=== PATIENT | male | born 1950 | race Asian ===

== ENCOUNTER 2016-09-30 06:37 | Inpatient (IN) | payer BC ==
[2016-09-10 10:53] VITALS: BMI 30.7
[~2016-09-30 06:37] MED LIST: CEFAZOLIN 2 GM in DEXTROSE 5%-WATER - 50 ML IVPB ONE; CELECOXIB 200 MG CAPSULE PO ONE; GABAPENTIN 300 MG CAPSULE (FP) PO ONE; PANTOPRAZOLE 40 MG TABLET (FP) PO ONE; ROPIVICAINE 0.2%/MORPH PF/KETOROLAC - 51ML DISP.SYRINGE IA ONE; TRANEXAMIC ACID 1000 MG/10 ML VIAL IVPUSH ONE; oxyCODONE HCL 10 MG SUSTAINED ACTING TABLET PO ONE
[2016-09-30] MEDS ORDERED: PANTOPRAZOLE 40 MG TABLET (FP) ONE (06:40)
[2016-09-30] MEDS ORDERED: oxyCODONE HCL 10 MG SUSTAINED ACTING TABLET ONE (06:40)
[2016-09-30] MEDS ORDERED: GABAPENTIN 300 MG CAPSULE (FP) ONE (06:41)
[2016-09-30] MEDS ORDERED: CELECOXIB 200 MG CAPSULE ONE (06:41)
[2016-09-30] MEDS ORDERED: DEXAMETHASONE SOD PHOSPHATE/PF 10 MG/ML SDV ONE (07:21)
[2016-09-30] MEDS ORDERED: ROPIVACAINE HCL 0.5% 30ML VIAL ONE (07:22)
[2016-09-30] MEDS ORDERED: BUPIVACAINE HCL/PF 2.5 MG/ML - 30 ML VIAL IJ ONE (07:22)
[2016-09-30] MEDS ORDERED: MIDAZOLAM HCL 2 MG/2 ML SINGLE DOSE VIAL ONE (07:23)
[2016-09-30] MEDS ORDERED: ceFAZolin SODIUM 1 GM VIAL ONE ×2 (07:26→08:24)
[2016-09-30] MEDS ORDERED: VANCOMYCIN 1,000 MG VIAL (RESTRICTED TO ID ONLY) ONE (07:27)
--- NOTE | 2016-09-30 07:39 | HP ---
Admitting History and Physical - Admission Chief Complaint: right knee osteoarthritis x years History of Present Illness: 66 year old male presents in regard to his right knee. Longstanding history of right knee osteoarthritis. Patient's knee osteoarthritis is limited to one compartment. Patient complains of pain, limited ROM and difficulty with ADLs. Patient has failed conservative treatment including PO medication, activity modification, injections and exercise program. Patient would like to proceed with a right knee unicompartmental knee arthroplasty (MAKOplasty). History Source: Patient - Past Medical History Musculoskeletal: Yes: Osteoarthritis - Past Surgical History Additional Past Surgical History: See written H&P - Smoking History Smoking history: Former smoker Have you smoked in the past 12 months: No If you are a former smoker, when did you quit?: 20 YRS AGO - Alcohol/Substance Use Hx Alcohol Use: No Home Medications - Allergies Allergies/Adverse Reactions: Allergies Allergy/AdvReac Type Severity Reaction Status Date / Time No Known Allergies Allergy Verified 09/10/16 10:45 - Home Medications Home Medications: Ambulatory Orders Cholecalciferol (Vitamin D3) [Vitamin D3] 5,000 unit PO Q48H 09/25/15 Review of Systems - Review of Systems Musculoskeletal: reports: Crepitus (Right knee), Decreased ROM (Right knee), Joint Pain (Right knee), Joint Swelling (Right knee) Physical Examination Vital Signs: Vital Signs Temperature 98.6 F 09/30/16 06:45 Pulse Rate 70 09/30/16 06:45 Respiratory Rate 18 09/30/16 06:45 Blood Pressure 134/72 09/30/16 06:45 O2 Sat by Pulse Oximetry (%) Constitutional: Yes: Well Nourished, No Distress Eyes: Yes: Conjunctiva Clear HENT: Yes: Atraumatic, Normocephalic Neck: Yes: Supple Cardiovascular: Yes: Regular Rate and Rhythm Respiratory: Yes: Regular Gastrointestinal: Yes: Soft ...Rectal Exam: Yes: Deferred Musculoskeletal: Yes: Joint Stiffness (Right knee) Assessment/Plan 66 year old male presents in regard to his right knee. Longstanding history of right knee osteoarthritis, limited to one compartment. Patient has failed all conservative treatment. Proceed with right unicompartmental knee arthroplasty ( MAKOplasty).
[2016-09-30] MEDS ORDERED: PROPOFOL 20 ML ONE ×2 (08:34→09:45)
[2016-09-30] MEDS ORDERED: TRANEXAMIC ACID 1000 MG/10 ML VIAL IVPUSH ONE (10:16)
[2016-09-30] MEDS ORDERED: VANCOMYCIN 1 GRAM (PRE-DOCKED) 1,000 MG/250 ML BAG IVPB ONE (10:19)
[2016-09-30] MEDS ORDERED: ROPIVICAINE 0.2%/MORPH PF/KETOROLAC - 51ML DISP.SYRINGE IA ONE (10:30)
--- NOTE | 2016-09-30 11:16 | OP ---
Operative Note - Note: Operative Date: 09/30/16 Operation: right medial makoplasty partial knee replacement Post-Operative Diagnosis: Same as Pre-op Surgeon: Connor Winn Buyer Liaison: Kizzy Tena Anesthesia: Spinal Estimated Blood Loss (mls): 50
[2016-09-30] MEDS ORDERED: ONDANSETRON 4 MG/2 ML VIAL IVPB PRN ×2 (11:17→12:20)
[2016-09-30] MEDS ORDERED: MAG HYDROX/AL HYDROX/SIMETH 30 ML UNIT-DOSE CUP PO PRN ×2 (11:17→12:20)
[2016-09-30] MEDS ORDERED: ONDANSETRON 4 MG/2 ML VIAL IVPUSH PRN (11:17)
[2016-09-30] MEDS ORDERED: oxyCODONE HCL 5 MG TABLET PO PRN ×4 (11:17→12:20)
[2016-09-30] MEDS ORDERED: ACETAMINOPHEN 1000 MG/100 ML VIAL (NON FORMULARY) IVPB ONE (11:21)
[2016-09-30] MEDS ORDERED: traMADol HCL 50 MG TABLET PO SCH (11:30)
[2016-09-30] MEDS ORDERED: LACTATED RINGERS SOLUTION 1,000 ML IV SCH ×4 (11:30)
[2016-09-30] MEDS ORDERED: KETOROLAC TROMETHAMINE 30 MG/1 ML VIAL IVPUSH SCH (11:30)
[2016-09-30] MEDS ORDERED: KETOROLAC TROMETHAMINE 30 MG/1 ML VIAL ONE (11:42)
[2016-09-30] MEDS ORDERED: traMADol HCL 50 MG TABLET ONE (11:42)
[2016-09-30] MEDS: KETOROLAC TROMETHAMINE 30 MG/1 ML VIAL IVPUSH SCH ×2 (17:31→23:35)
[2016-09-30] MEDS: CEFAZOLIN 2 GM/D5W 50 ML IVPB SCH (17:31)
[2016-09-30] MEDS: ACETAMINOPHEN 325 MG TABLET (FP) PO SCH ×2 (17:31→23:36)
[2016-09-30] MEDS: traMADol HCL 50 MG TABLET PO SCH ×2 (17:31→23:36)
[2016-09-30] MEDS ORDERED: ACETAMINOPHEN 325 MG TABLET (FP) PO SCH (18:00)
[2016-09-30] MEDS ORDERED: CEFAZOLIN 2 GM/D5W 50 ML IVPB SCH (18:00)
[2016-09-30] MEDS: CELECOXIB 200 MG CAPSULE PO SCH (21:30)
[2016-09-30] MEDS: SENNOSIDES/DOCUSATE COMBO (SENNA PLUS) TABLET (UD) PO SCH (21:30)
[2016-09-30] MEDS: oxyCODONE HCL 10 MG SUSTAINED ACTING TABLET PO SCH (21:30)
[2016-09-30] MEDS: GABAPENTIN 300 MG CAPSULE (FP) PO SCH (21:30)
[2016-09-30] MEDS: ASCORBIC ACID 500 MG TABLET (FP) PO SCH (21:31)
[2016-09-30] MEDS ORDERED: GABAPENTIN 300 MG CAPSULE (FP) PO SCH (22:00)
[2016-09-30] MEDS ORDERED: oxyCODONE HCL 10 MG SUSTAINED ACTING TABLET PO SCH (22:00)
[2016-09-30] MEDS ORDERED: CELECOXIB 200 MG CAPSULE PO SCH (22:00)
[2016-09-30] MEDS ORDERED: ASCORBIC ACID 500 MG TABLET (FP) PO SCH (22:00)
[2016-10-01] MEDS: CEFAZOLIN 2 GM/D5W 50 ML IVPB SCH (02:06)
[2016-10-01] MEDS: traMADol HCL 50 MG TABLET PO SCH (05:43)
[2016-10-01] MEDS: KETOROLAC TROMETHAMINE 30 MG/1 ML VIAL IVPUSH SCH (05:43)
[2016-10-01] MEDS: ACETAMINOPHEN 325 MG TABLET (FP) PO SCH (05:44)
[2016-10-01 05:59] VITALS: BP 128/59; PULSE 66; TEMP 98.1
[2016-10-01 07:53] LABS: MCH 31.2 pg (25.7-33.7); MCHC 33.9 g/dl (32.0-35.9); MEAN CELL VOLUME 92.1 fl (80-96); MEAN PLT VOLUME 8.6 fl (7.5-11.1); PLATELET COUNT 200 K/MM3 (134-434); RDW 12.2 % (11.9-15.9); WHITE BLOOD COUNT 8.9 K/mm3 (4.0-10.8)
[2016-10-01 07:58] LABS: ANION GAP 4 (8-16); CALCIUM 8.5 mg/dl (8.4-10.2); CO2 27 mmol/L (22-28); CREATININE 0.7 mg/dl (0.6-1.3); GLUCOSE,RANDOM 149 mg/dl (74-106)
[2016-10-01] MEDS ORDERED: ASPIRIN 325 MG TABLET PO SCH ×2 (08:00)
--- NOTE | 2016-10-01 08:29 | PN ---
Progress Note (short form) - Note Progress Note: Pt seen and examined. Doing well. AVSS Selected Entries 10/01/16 05:57 Temperature 98.1 F Pulse Rate 66 Respiratory 18 Rate Blood Pressure 128/59 O2 Sat by Pulse 99 Oximetry (%) Oxygen Delivery Nasal Cannula Method Laboratory Tests 10/01/16 10/01/16 07:22 07:22 WBC 8.9 Hgb 14.4 Hct 42.6 Plt Count 200 Sodium 134 L Potassium 4.0 Chloride 103 Carbon Dioxide 27 Anion Gap 4 L BUN 16 Creatinine 0.7 Random Glucose 149 H Calcium 8.5 Gen: NAD RLE: c/d/i, NVID A/P POD#1 s/p R knee medial MAKOplasty 1. PT/OOB - WBAT RLE 2. D/C home today
--- NOTE | 2016-10-01 08:36 | DS ---
Physical Examination Vital Signs: Vital Signs Temperature 98.1 F 10/01/16 05:57 Pulse Rate 66 10/01/16 05:57 Respiratory Rate 18 10/01/16 08:26 Blood Pressure 128/59 10/01/16 05:57 O2 Sat by Pulse Oximetry (%) 99 10/01/16 08:26 Labs: CBC, BMP 10/01/16 07:22 10/01/16 07:22 Discharge Summary Reason For Visit: OSTEOARTHRITIS RIGHT KNEE Current Active Problems Osteoarthritis of right knee (Acute) Procedures: Principal: right knee medial makoplasty Hospital Course: Admitted for elective surgery. Procedure performed without complications. Pt received postoperative antibiotic prophylaxis and DVT ppx. Ambulated with physical therapy. Stable for discharge home with outpatient followup. Condition: Stable - Instructions Diet, Activity, Other Instructions: Dr. Winn - Knee Replacement Instructions Keep the Aquacel dressing on until removed by Dr. Winn in 10-14 days - it is antibacterial and waterproof and you can shower with it on. Call the office for a follow-up appointment with Dr. Winn in 10-14 days. Take one Aspirin 325mg daily for 6 weeks to prevent blood clots in your legs. Take one Pantoprazole 40mg daily for 6 weeks to protect against heartburn and ulcers. Take Celebrex 200mg twice daily for 30 days to reduce swelling and inflammation. Take a stool softener, multivitamin, and extra Vitamin C supplement daily. For pain: *Mild pain (1-3/10): Take 1 Tramadol tablet every 4 hours as needed. Moderate pain (4-6/10): Take 1 Tramadol tablet and 1 Percocet tablet every 4 hours as needed. Severe pain (7-10/10): Take 1 Tramadol tablet and 2 Percocet tablets every 4 hours as needed. Before the surgery, the anesthesiologist injected a block in your thigh which makes the front of your leg numb for 48-72hrs. This will wear off after you get home and the pain around the incisions may increase. Take pain medications as needed. Activity: You can put as much weight on the operative leg as you want. Right after you get home, there will be a physical therapist coming to your house to help you walk around and bend/straighten your knee. After your follow-up appointment, you will be sent for more intensive outpatient physical therapy which will include machines and equipment that the home therapist cannot bring to your house. Always use a walker or cane for balance and to prevent falls. Disposition: [facility]/HOME HEALTH CARE - Home Medications Comprehensive Discharge Medication List: Ambulatory Orders Cholecalciferol (Vitamin D3) [Vitamin D3] 5,000 unit PO Q48H 09/25/15 Ascorbic Acid [Vitamin C -] 500 mg PO BID tablet 10/01/16 Aspirin [ASA -] 325 mg PO DAILY@0800 tablet 10/01/16 Celecoxib [CeleBREX -] 200 mg PO BID #60 tab 10/01/16 Multivitamins [Multivit ([facility] Formul[facility])] 1 tab PO DAILY tab 10/01/16 Oxycodone HCl/Acetaminophen [Percocet 5-325 mg Tablet] 1 - 2 tab PO Q4H PRN #60 tablet MDD 10 10/01/16 Pantoprazole Sodium [Protonix -] 40 mg PO DAILY #40 tab 10/01/16 Sennosides/Docusate Sodium [Pericolace -] 2 tablet PO BID tablet 10/01/16 Tramadol HCl [Ultram -] 50 mg PO Q4H PRN #90 tablet MDD 6 10/01/16
[2016-10-01] MEDS: oxyCODONE HCL 10 MG SUSTAINED ACTING TABLET PO SCH (09:06)
[2016-10-01] MEDS: GABAPENTIN 300 MG CAPSULE (FP) PO SCH (09:06)
[2016-10-01] MEDS: CELECOXIB 200 MG CAPSULE PO SCH (09:06)
[2016-10-01] MEDS: SENNOSIDES/DOCUSATE COMBO (SENNA PLUS) TABLET (UD) PO SCH (09:07)
[2016-10-01] MEDS: ASCORBIC ACID 500 MG TABLET (FP) PO SCH (09:07)
--- NOTE | 2016-10-01 09:10 | PN ---
Progress Note (short form) - Note Progress Note: ANESTHESIOLOGY POST-OP CHECK 66M s/p right medial knee makoplasty under nerve block and spinal anesthesia POD #1. No acute complaints. Ambulating, voiding, tolerating PO. Denies N/V, numbness, weakness. pain 2/10 and tolerable. Vital Signs Temperature 98.1 F 10/01/16 05:57 Pulse Rate 66 10/01/16 05:57 Respiratory Rate 18 10/01/16 08:26 Blood Pressure 128/59 10/01/16 05:57 O2 Sat by Pulse Oximetry (%) 99 10/01/16 08:26 Active Medications Acetaminophen (Tylenol -) 650 mg PO Q6H [facility] Stop: 10/03/16 17:59 Last Admin: 10/01/16 05:44 Dose: 650 mg Al Hydroxide/Mg Hydroxide (Mylanta Oral Suspension -) 30 ml PO Q4H PRN PRN Reason: DYSPEPSIA Ascorbic Acid (Vitamin C -) 500 mg PO BID [facility] Last Admin: 10/01/16 09:07 Dose: 500 mg Aspirin (Asa -) 325 mg PO DAILY@0800 [facility] Last Admin: 10/01/16 08:20 Dose: 325 mg Celecoxib (Celebrex -) 200 mg PO BID [facility] Last Admin: 10/01/16 09:06 Dose: 200 mg Fentanyl (Sublimaze Injection -) 50 mcg IVPUSH [id number] PRN PRN Reason: PAIN Stop: 10/03/16 11:18 Gabapentin (Neurontin -) 300 mg PO BID [facility] Stop: 10/03/16 21:59 Last Admin: 10/01/16 09:06 Dose: 300 mg Lactated Ringer's (Lactated Ringers Solution) 1,000 mls @ 75 mls/hr IV ASDIR [facility] Ketorolac Tromethamine (Toradol Injection -) 30 mg IVPUSH Q6H [facility] Stop: 10/02/16 05:31 Last Admin: 10/01/16 05:43 Dose: 30 mg Multivitamins/Minerals/Vitamin C (Tab-A-Vit -) 1 tab PO DAILY [facility] Ondansetron HCl (Zofran Injection) 4 mg IVPB Q6H PRN PRN Reason: NAUSEA Oxycodone HCl (Roxicodone -) 5 mg PO Q3H PRN PRN Reason: PAIN LEVEL 1-5 Oxycodone HCl (Roxicodone -) 10 mg PO Q3H PRN PRN Reason: PAIN LEVEL 6-10 Last Admin: 10/01/16 08:20 Dose: 10 mg Oxycodone HCl (Oxycontin -) 10 mg PO BID [facility] Last Admin: 10/01/16 09:06 Dose: 10 mg Pantoprazole Sodium (Protonix -) 40 mg PO DAILY [facility] Senna/Docusate Sodium (Pericolace -) 2 tablet PO BID [facility] Last Admin: 10/01/16 09:07 Dose: 2 tablet Tramadol HCl (Ultram -) 50 mg PO Q6H [facility] Last Admin: 10/01/16 05:43 Dose: 50 mg Gen: Awake, alert No apparent anesthesia complications, pain well controlled. Continue management as per primary team.
[2016-10-01] MEDS ORDERED: MULTIVITAMINS (DAILY MVI) TABLET (FP) PO SCH ×2 (10:00)
[2016-10-01] MEDS ORDERED: PANTOPRAZOLE 40 MG TABLET (FP) PO SCH ×2 (10:00)
== END 2016-10-01 11:55 | disposition home health service (06) | DRG 470 ==
LOC: FASUSAT 06:37 → FM/S 06:37 → EDSTATUS 12:00 → FM/S 12:10
PROVIDERS: ADMIT Student in an Organized Health Care Education/Training Program; ATTEND Student in an Organized Health Care Education/Training Program
PROC: 8E0Y0CZ Robotic Assisted Procedure of Lower Extremity, Open Approach (ICD-10-PCS; 2016-09-30)
PROC: 0SRC0LZ Replacement of Right Knee Joint with Medial Unicondylar Synthetic Substitute, Open Approach (ICD-10-PCS; principal; 2016-09-30 08:44)
DX: M17.11 Unilateral primary osteoarthritis, right knee (principal); Z87.891 Personal history of nicotine dependence; E66.9 Obesity, unspecified; Z68.30 Body mass index [BMI] 30.0-30.9, adult
CPT/HCPCS: 36415; 73560-TC-RT; 80048; 85027; 94010; 94760; 97116-GP; 97162-GP